=== PATIENT | female | born 1945 | race African-American/Black ===

== ENCOUNTER 2017-11-21 19:31 | Emergency (ER) | payer MEDICARE, OTHER ==
[~2017-11-21] VITALS: Ht 157.5 cm; Wt 57.0 kg
[2017-11-22] MEDS ORDERED: LIDOCAINE HCL 1% 20ML VIAL (Pyxis) INJ MC ONE (02:15)
[2017-11-22] MEDS ORDERED: BACITRACIN ZINC OINT UDPKT TOP ONE (02:15)
[2017-11-22 03:32] VITALS: BP 118/65
== END 2017-11-22 03:33 | disposition home or self-care (01) ==
LOC: ER 11-22 00:54
DX: S61.411A Laceration without foreign body of right hand, initial encounter (principal); X58.XXXA Exposure to other specified factors, initial encounter; Y93.89 Activity, other specified; Y92.89 Other specified places as the place of occurrence of the external cause; Y99.8 Other external cause status; Z88.1 Allergy status to other antibiotic agents; D64.9 Anemia, unspecified; Z98.890 Other specified postprocedural states
CPT/HCPCS: 12001; 99283; J3490